=== PATIENT | female | born 1975 | race Caucasian/White ===

== ENCOUNTER 2018-05-02 15:47 | Emergency (ER) | payer BC, OTHER ==
[~2018-05-02] VITALS: Ht 170.2 cm; Wt 81.8 kg
[~2018-05-02 15:47] MED LIST: NO MEDS
[2018-05-02 15:54] VITALS: Ht 170.2 cm; Wt 81.8 kg
[2018-05-02] MEDS ORDERED: SODIUM CHLORIDE 0.9% 1L BAG IV* STA (15:58)
[2018-05-02 19:58] VITALS: BP 117/52; PULSE 80; RESP 12
--- NOTE | 2018-05-02 20:44 | ERD ---
ER Documentation Chief Complaint Chief Complaint ALOC x 30 minutes HPI The patient is a 42-year-old female, presenting to the ER because of altered level consciousness about 30 minutes prior to arrival. She is having problem with her son, follow commands. History is obtained from the son. She does not provide any history. She does not have any medical problems according to the son, does not take any medication. Past medical/surgical history/social history/review of system: Unable to obtain due to her condition ROS All systems reviewed and are negative except as per history of present illness. Medications Home Meds Reported Medications [No Meds] No Conflict Check 01/15/11 Allergies Allergies: Coded Allergies: No Known Allergy (Unverified , 01/15/11) PMhx/Soc Medical and Surgical Hx: pt denies Medical Hx, pt denies Surgical Hx History of Surgery: No Anesthesia Reaction: No Hx Neurological Disorder: No Hx Respiratory Disorders: No Hx Cardiac Disorders: Yes (HIGH CHOLESTEROL) Hx Psychiatric Problems: No Hx Miscellaneous Medical Probl: No Hx Alcohol Use: No Hx Substance Use: No Hx Tobacco Use: No Smoking Status: Never smoker Physical Exam Vitals Vital Signs Date Temp Pulse Resp B/P (MAP) Pulse Ox O2 O2 Flow FiO2 Time Delivery Rate 05/02/18 80 12 117/52 100 Room Air 19:58 (73) 05/02/18 64 19 101/66 99 Room Air 17:30 (78) 05/02/18 Nasal 3 15:55 Cannula 05/02/18 71 17 102/56 100 15:54 (71) Physical Exam Const: No acute distress. Head: Atraumatic. Eyes: Normal Conjunctiva. ENT: Normal External Ears, Nose and Mouth. Neck: Full range of motion. No meningismus. Resp: Clear to auscultation bilaterally. Cardio: Regular rate and rhythm. Abd: Soft, non distended, normal bowel sounds, non tender. Skin: No petechiae or rashes. Back: No midline or flank tenderness. Ext: No cyanosis, or edema. Neur: Awake and alert. No focal deficit Psych: Depressed. Result Diagram: 05/02/18 1550 05/02/18 1550 Results 24 hrs Laboratory Tests Test 05/02/18 15:50 05/02/18 15:56 05/02/18 16:59 05/02/18 17:26 White Blood Count 8.9 10^3/ul Red Blood Count 3.87 10^6/ul Hemoglobin 11.9 g/dl Hematocrit 36.0 % Mean Corpuscular 93.0 fl Volume Mean Corpuscular 30.7 pg Hemoglobin Mean Corpuscular 33.1 g/dl Hemoglobin Concen t Red Cell 12.9 % Distribution Width Platelet Count 248 10^3/UL Mean Platelet 11.0 fl Volume Immature 0.300 % Granulocytes % Neutrophils % 49.7 % Lymphocytes % 40.1 % Monocytes % 8.5 % Eosinophils % 1.1 % Basophils % 0.3 % Nucleated Red 0.0 /100WBC Blood Cells % Immature 0.030 10^3/ul Granulocytes # Neutrophils # 4.4 10^3/ul Lymphocytes # 3.6 10^3/ul Monocytes # 0.8 10^3/ul Eosinophils # 0.1 10^3/ul Basophils # 0.0 10^3/ul Nucleated Red 0.0 10^3/ul Blood Cells # Prothrombin Time 12.3 Sec Prothrombin Time 1.0 Ratio INR International 0.90 Normalized Ratio Activated 24.8 Sec Partial Thrombopl ast Time Sodium Level 140 mmol/L Potassium Level 3.5 mmol/L Chloride Level 108 mmol/L Carbon Dioxide 22 mmol/L Level Anion Gap 10 Blood Urea 10 mg/dl Nitrogen Creatinine 0.53 mg/dl Est Glomerular > 60 mL/min Filtrat Rate mL/min Glucose Level 132 mg/dl Calcium Level 8.8 mg/dl Total Bilirubin 0.3 mg/dl Direct Bilirubin 0.00 mg/dl Indirect 0.3 mg/dl Bilirubin Aspartate Amino 25 IU/L Transf (AST/SGOT) Alanine 17 IU/L Aminotransferase (ALT/SGPT) Alkaline 44 IU/L Phosphatase Troponin I < 0.012 ng/ml Total Protein 7.4 g/dl Albumin 4.4 g/dl Globulin 3.00 g/dl Albumin/Globulin 1.46 Ratio Beta HCG, < 2.4 mIU/ml Quantitative Ethyl Alcohol < 10.0 mg/dl Level POC Venous 2.0 mmol/L Lactate Bedside Glucose 99 mg/dL Urine Color YELLOW Urine Clarity CLEAR Urine pH 6.0 Urine Specific 1.019 [place] Urine Ketones TRACE mg/dL Urine Nitrite NEGATIVE mg/dL Urine Bilirubin NEGATIVE mg/dL Urine NEGATIVE mg/dL Urobilinogen Urine Leukocyte NEGATIVE Rell/ul Esterase Urine Hemoglobin NEGATIVE mg/dL Urine Glucose NEGATIVE mg/dL Urine Total NEGATIVE mg/dl Protein Urine Opiates Negative Screen Urine Negative Barbiturates Urine Negative Amphetamines Screen Urine Negative Benzodiazepines Screen Urine Cocaine Negative Screen Urine Positive Cannabinoids Test 05/02/18 18:05 POC Venous 0.9 mmol/L Lactate Current Medications Medications Dose Sig/Braden Start Time Status Last (Trade) Ordered Route PRN Stop Time Admin Dose Reason Admin Sodium 2,450 ml BOLUS OVER 2 05/02/18 DC 05/02/18 Chloride HOURS STAT 15:58 16:17 (NS) IV* 05/02/18 16:01 Procedures/[place] [id number] Radiology Main Line: [phone] DIAGNOSTIC IMAGING REPORT Patient: LEAH SOSA : 1975 Age: 42 Sex: F MR #: [id number] DOS: 05/02/18 1558 Ordering MD: SALINA DIXON MD Location: E/R Room/Bed: PROCEDURE: CT Brain without contrast. CLINICAL INDICATION: Altered mental status. TECHNIQUE: A CT of the brain without contrast was performed utilizing axial sections from the skull base through the vertex. One or more the following does reduction techniques were utilized: Automated exposure control, adjustment of the mA/ or kV according to patient's size, or use of iterative reconstruction technique. Total exam CTDIvol is 39.64 MGy and DLP is 634.23 mGy-cm. DICOM images are available. COMPARISON: None available. FINDINGS: The ventricles and sulci are age-appropriate. There is no intracranial hemorrhage, mass effect or midline shift. No abnormal intra-axial or extra- axial fluid collections are seen. The whatley/white matter differentiation is pre served. No acute skull abnormality is noted. The right mastoid air cells are underpneumatized. The visualized paranasal sinuses are essentially clear. IMPRESSION: 1. No acute intracranial hemorrhage, transcortical infarction or mass effect. RPTAT: .Isaias Caballero MD, Date Time Electronically viewed and signed by .Isaias Caballero MD, on 05/02/2018 16:19 .N/ CC: SALINA DIXON MD [id number] [place] [id number] Radiology Main Line: [phone] DIAGNOSTIC IMAGING REPORT Patient: LEAH SOSA : 1975 Age: 42 Sex: F MR #: [id number] DOS: 05/02/18 1558 Ordering MD: SALINA DIXON MD Location: E/R Room/Bed: PROCEDURE: XR Chest. CLINICAL INDICATION: . TECHNIQUE: Single frontal chest x-ray. COMPARISON: None. FINDINGS: The lungs are clear of acute infiltrates, edema, effusions, or masses. Low lung volumes with hilar vascular crowding is noted.. The cardiomediastinal silhouette is unremarkable. The osseous structures are intact. IMPRESSION: No acute cardiopulmonary disease. Low lung volumes. RPTAT: GG .Ankit Ledezma MD, MD Date Time Electronically viewed and signed by .Ankit Ledezma MD, MD on 05/02/2018 16:53 .L/ CC: SALINA DIXON MD [id number] EKG: Read by emergency physician Rate/Rhythm: Normal Sinus Rhythm 65 beats/min QRS, ST, T-waves: No ST elevation, no T inversion Impression: Normal EKG MEDICAL MAKING DECISION: The patient is a 42-year-old female, presenting with acute anxiety, acute distress, acute dehydration, marijuana abuse. She was treated with normosaline 30 mm/kg IV for acute dehydration with good response. She is now awake, alert, denies suicidal/homicidal ideation, able to tolerate meal and ambulate independently without any difficulty. She is stable for outpatient follow-up The differential diagnoses considered include but are not limited to acute anxiety/ panic attack, acute stress, THC abuse. Departure Diagnosis: Primary Impression: Marijuana abuse Additional Impressions: Anxiety Dehydration Anemia Condition: Good Patient Instructions: Anxiety Reaction, Marijuana Abuse Additional Instructions: Call your primary care doctor TOMORROW for an appointment during the next 1-2 da ys.See the doctor sooner or return here if your condition worsens before your appointment time. SALINA DIXON MD May 02, 2018 20:44
== END 2018-05-02 20:07 | disposition home or self-care (01) ==
LOC: E/R 15:47
DX: F12.10 Cannabis abuse, uncomplicated (principal); F41.9 Anxiety disorder, unspecified; E86.0 Dehydration; D64.9 Anemia, unspecified; R40.2122 Coma scale, eyes open, to pain, at arrival to emergency department; R40.2212 Coma scale, best verbal response, none, at arrival to emergency department; R40.2312 Coma scale, best motor response, none, at arrival to emergency department; R20.0 Anesthesia of skin
CPT/HCPCS: 36415; 70450; 71045; 80053; 80307; 81003; 82962; 84484; 84702; 85025; 85610; 85730; 86305; 87040; 87086; 93005; 99285; J7030; P9612; 83605